=== PATIENT | female | born 1990 | race Asian ===

== ENCOUNTER 2025-04-27 09:00 | Inpatient (IN) | payer BC ==
[~2025-04-27] VITALS: Ht 162.6 cm; Wt 94.0 kg
[2025-04-27] VITALS (16 sets, daily range): BP systolic 120–145; BP diastolic 66–107; PULSE 65–141; RESP 16–18; TEMP 98.6–102.3; O2SAT 98–100
[~2025-04-27 09:00] MED LIST: NOCURR
[2025-04-27] MEDS ORDERED: LOSA-381 PO (09:06)
[2025-04-27 09:33] LABS: CALCIUM, TOTAL 7.9 mg/dL (8.8-10.5); CREATININE 0.66 mg/dL (0.60-1.30); GLOMERULAR FILTR. RATE CALC > 60 mL/min (>60); GLUCOSE,RANDOM 92 mg/dL (70-110); SODIUM SERUM 138 mmol/L (136-145); UREA NITROGEN, BLOOD 16 mg/dL (7-18)
[2025-04-27 09:34] LABS: PLATELET COUNT (AUTO) 217 K/uL (150-450); RED BLOOD CELL COUNT(AUTO) 3.95 MIL/uL (4.00-5.20); RED CELL DISTRIBUTION WIDTH 14.4 % (11.5-14.5); WHITE BLOOD COUNT (AUTO) 6.4 K/uL (4.5-11.0)
[2025-04-27 09:45] LABS: TROPONIN I-HIGH SENSITIVITY 62 ng/L (<51)
[2025-04-27] MEDS: HEPARIN SODIUM,PORCINE 5,000 UNITS/ML VIAL IVP ONE (11:35)
[2025-04-27] MEDS: ASPIRIN 325 MG TABLET PO ONE (11:35)
[2025-04-27] MEDS: TICAGRELOR 90 MG TABLET PO ONE (11:35)
[2025-04-27] MEDS ORDERED: FentaNYL CITRATE PF 100 MCG/2 ML VIAL ONE (11:59)
[2025-04-27] MEDS ORDERED: MIDAZOLAM HCL 2 MG/2 ML VIAL ONE (11:59)
[2025-04-27] MEDS ORDERED: VERAPAMIL HCL 2.5 MG/ML 2 ML VIAL ONE (12:22)
[2025-04-27] MEDS ORDERED: NITROGLYCERIN 50 MG/D5% WATER 250 ML ONE (12:22)
[2025-04-27 12:42] LABS: TROPONIN I-HIGH SENSITIVITY 907 ng/L (<51)
[2025-04-27] MEDS: VERAPAMIL HCL 2.5 MG/ML 2 ML VIAL ICOR ONE (12:58)
[2025-04-27] MEDS: LIDOCAINE 1% 30 ML/SOD BICARB 8.4% 4 ML SQ ONE (12:58)
[2025-04-27] MEDS: HEPARIN SODIUM 1000 UNITS/NS 1,000 ML IARTER ONE (12:58)
[2025-04-27] MEDS: HEPARIN SODIUM,PORCINE 1,000 UNITS/ML 10 ML VIAL IVP ONE ×2 (12:59→13:01)
[2025-04-27] MEDS: NITROGLYCERIN/D5W 50 MG/250 ML IV BOTTLE ICOR ONE ×2 (12:59→13:01)
[2025-04-27] MEDS: IOHEXOL 300 MG/ML 100 ML VIAL ICOR ONE ×2 (13:00→13:03)
[2025-04-27] MEDS ORDERED: BISACODYL 10 MG RECTAL RECTAL SUPPOSITORY PR PRN (15:15)
[2025-04-27] MEDS ORDERED: IPRATROPIUM BROMIDE 0.5 MG/2.5 ML NEB SOLUTION NEB PRN (15:15)
[2025-04-27] MEDS ORDERED: ZOLPIDEM TARTRATE 5 MG TABLET PO PRN (15:15)
[2025-04-27] MEDS ORDERED: MORPHINE SULFATE 4 MG/ML VIAL IVP PRN (15:15)
[2025-04-27] MEDS ORDERED: ONDANSETRON HCL 4 MG/2 ML VIAL IVP PRN (15:15)
[2025-04-27] MEDS ORDERED: ALBUTEROL SULFATE 2.5 MG/0.5 ML NEB SOLUTION NEB PRN (15:15)
[2025-04-27] MEDS ORDERED: MAGNESIUM HYDROXIDE SUSPENSION 30 ML UDCUP PO PRN (15:15)
[2025-04-27] MEDS ORDERED: HYDROCODONE/ACETAMINOPHEN 5-325 MG TABLET PO PRN (15:15)
[2025-04-27] MEDS: ACETAMINOPHEN 325 MG TABLET PO PRN (15:42)
[2025-04-27] MEDS: ATORVASTATIN CALCIUM 40 MG TABLET PO ONE (16:20)
[2025-04-27] MEDS: HEPARIN SODIUM,PORCINE 5,000 UNITS/ML VIAL SQ SCH (16:20)
[2025-04-27 20:10] LABS: APPEARANCE,URINE CLEAR (CLEAR); GLUCOSE, URINE (UA) NEGATIVE (NEGATIVE); LEUKOCYTE ESTERASE ,URINE TRACE (NEGATIVE); NITRATE,URINE NEGATIVE (NEGATIVE); OCCULT BLOOD,URINE NEGATIVE (NEGATIVE); SPECIFIC GRAVITIY, URINE 1.039 (1.003-1.030)
[2025-04-27 20:16] LABS: ALCOHOL, URINE DRUG SCREEN NEGATIVE (NEGATIVE); AMPHET/METH SCREEN,URINE NEGATIVE (NEGATIVE); BARBITURATE SCREEN, URINE NEGATIVE (NEGATIVE); CANNABINOID SCREEN,URINE NEGATIVE (NEGATIVE); COCAINE SCREEN,URINE NEGATIVE (NEGATIVE); METHADONE SCREEN, URINE NEGATIVE (NEGATIVE)
[2025-04-27 20:30] LABS: SQUAMOUS EPITHELIAL CELL,UR Few /LPF (None Seen)
[2025-04-27 20:34] LABS: PH,URINE DRUG SCREEN 6.0 (5.0-8.0)
[2025-04-27] MEDS: DOCUSATE SODIUM 100 MG CAPSULE PO SCH (20:41)
[2025-04-27] MEDS: TICAGRELOR 90 MG TABLET PO SCH (20:42)
[2025-04-28] VITALS (9 sets, daily range): BP systolic 122–143; BP diastolic 82–99; PULSE 63–82; RESP 17–18; TEMP 97.7–98.6; O2SAT 98–99
[2025-04-28 05:52] LABS: PLATELET COUNT (AUTO) 220 K/uL (150-450); RED BLOOD CELL COUNT(AUTO) 4.19 MIL/uL (4.00-5.20); RED CELL DISTRIBUTION WIDTH 14.3 % (11.5-14.5); WHITE BLOOD COUNT (AUTO) 7.1 K/uL (4.5-11.0)
[2025-04-28 05:54] LABS: CALCIUM, TOTAL 8.1 mg/dL (8.8-10.5); CREATININE 0.53 mg/dL (0.60-1.30); GLOMERULAR FILTR. RATE CALC > 60 mL/min (>60); GLUCOSE,RANDOM 93 mg/dL (70-110); SODIUM SERUM 137 mmol/L (136-145); UREA NITROGEN, BLOOD 11 mg/dL (7-18)
[2025-04-28 07:01] LABS: TROPONIN I-HIGH SENSITIVITY 3363 ng/L (<51)
[2025-04-28] MEDS: POTASSIUM CHLORIDE 20 MEQ ER TABLET PO ONE (08:40)
[2025-04-28] MEDS: PANTOPRAZOLE SODIUM 40 MG DR TABLET PO SCH (08:40)
[2025-04-28] MEDS: ASPIRIN 81 MG CHEWABLE TABLET PO SCH (08:41)
[2025-04-28] MEDS: LOSARTAN POTASSIUM 25 MG TABLET PO SCH (08:41)
[2025-04-28] MEDS: METOPROLOL SUCCINATE 50 MG ER TABLET PO SCH (12:35)
[2025-04-28] MEDS: ATORVASTATIN CALCIUM 40 MG TABLET PO SCH (12:35)
[2025-04-28 13:37] LABS: CHOL/HDL RATIO 3.0 (3.9-5.7); LDL CHOL (CALC.) 69.0 mg/dL (0-130)
[2025-04-28] MEDS ORDERED: ASPI-1450 PO (14:50)
[2025-04-28] MEDS ORDERED: PANT-31 PO (14:50)
[2025-04-28] MEDS ORDERED: TICA90TA PO (14:50)
[2025-04-28] MEDS ORDERED: ATOR40TA71 PO (14:50)
[2025-04-28] MEDS ORDERED: LOSA-417 PO (14:50)
[2025-04-29 00:47] VITALS: BP 122/84; PULSE 65; RESP 17; TEMP 98.1; O2SAT 99
[2025-04-29 04:05] VITALS: BP 106/81; PULSE 67; RESP 18; TEMP 98.2; O2SAT 100
[2025-04-29 07:20] LABS: PLATELET COUNT (AUTO) 231 K/uL (150-450); RED BLOOD CELL COUNT(AUTO) 4.25 MIL/uL (4.00-5.20); RED CELL DISTRIBUTION WIDTH 14.6 % (11.5-14.5); WHITE BLOOD COUNT (AUTO) 7.5 K/uL (4.5-11.0)
[2025-04-29 07:33] LABS: CALCIUM, TOTAL 8.9 mg/dL (8.8-10.5); GLUCOSE,RANDOM 87 mg/dL (70-110); SODIUM SERUM 138 mmol/L (136-145)
[2025-04-29 07:44] LABS: CREATININE 0.80 mg/dL (0.60-1.30); GLOMERULAR FILTR. RATE CALC > 60 mL/min (>60); UREA NITROGEN, BLOOD 12 mg/dL (7-18)
[2025-04-29] MEDS: LOSARTAN POTASSIUM 25 MG TABLET PO SCH (07:56)
[2025-04-29 08:00] VITALS: BP 119/92; PULSE 70; RESP 19; TEMP 98.4; O2SAT 99
[2025-04-29 12:00] VITALS: BP 127/90; PULSE 68; RESP 16; TEMP 97.5; O2SAT 100
[2025-04-29] MEDS ORDERED: CEPH-558 PO (12:32)
[2025-04-29] MEDS: CEPHALEXIN MONOHYDRATE 500 MG CAPSULE PO ONE (13:33)
== END 2025-04-29 13:45 | disposition home or self-care (01) | DRG 322 ==
LOC: EMS 09:02 → EDH 13:34 → ICU 14:10 → 5S 04-28 17:28
PROVIDERS: ADMIT Internal Medicine; ATTEND Internal Medicine
PROC: 0270346 Dilation of Coronary Artery, One Artery, Bifurcation, with Drug-eluting Intraluminal Device, Percutaneous Approach (ICD-10-PCS; principal; 2025-04-27)
PROC: 4A023N7 Measurement of Cardiac Sampling and Pressure, Left Heart, Percutaneous Approach (ICD-10-PCS; 2025-04-27)
PROC: B2111ZZ Fluoroscopy of Multiple Coronary Arteries using Low Osmolar Contrast (ICD-10-PCS; 2025-04-27)
PROC: B2151ZZ Fluoroscopy of Left Heart using Low Osmolar Contrast (ICD-10-PCS; 2025-04-27)
DX: I21.09 ST elevation (STEMI) myocardial infarction involving other coronary artery of anterior wall (principal); N39.0 Urinary tract infection, site not specified; I25.10 Atherosclerotic heart disease of native coronary artery without angina pectoris; E78.5 Hyperlipidemia, unspecified; F17.290 Nicotine dependence, other tobacco product, uncomplicated; I10 Essential (primary) hypertension; I16.0 Hypertensive urgency; I25.2 Old myocardial infarction; Z79.82 Long term (current) use of aspirin; Z79.899 Other long term (current) drug therapy; Z82.49 Family history of ischemic heart disease and other diseases of the circulatory system; Z95.5 Presence of coronary angioplasty implant and graft
CPT/HCPCS: 71045; 80048; 80061; 80307; 81001; 83036; 83690; 83735; 84132; 84443; 84484; 84703; 85025; 85379; 85610; 85730; 87040; 87077; 87086; 87186; 92920; 92928; 93005; 93306; 96361; 96365; 96374; 96375; 96376; 99291; G0378; G0480; J1644; J2250; J3010; J3490; 36415-L1; 36415-TC; Z7610